=== PATIENT | female | born 1990 | race Caucasian/White ===

== ENCOUNTER 2021-09-14 01:21 | Inpatient (IN) | payer BC ==
[2021-09-14] MEDS ORDERED: Ondansetron 4 MG/2 ML SDV IVPUSH PRN (01:49)
[2021-09-14] MEDS ORDERED: Tranexamic Acid 1,000 MG in Sodium Chloride 0.9% 100 ML IV PRN (01:49)
[2021-09-14] MEDS ORDERED: Sodium Chloride 0.9% 10 ML Syringe FLUSH PRN (01:49)
[2021-09-14] MEDS ORDERED: Sodium Chloride 0.9% 20 ML SDV IV PRN (01:49)
[2021-09-14] MEDS ORDERED: Sodium Chloride 0.9% 2.5 ML Syringe FLUSH PRN (01:49)
[2021-09-14] MEDS ORDERED: Butorphanol 1 MG/ML SDV IVPUSH PRN (01:49)
[2021-09-14] MEDS ORDERED: Methylergonovine 0.2 MG/1 ML Amp IM PRN (01:49)
[2021-09-14] MEDS ORDERED: Carboprost Tromethamine 250 MCG/1 ML Amp IM PRN (01:49)
[2021-09-14] MEDS ORDERED: Lidocaine 1% 50 ML MDV INJECT PRN (01:49)
[2021-09-14] MEDS ORDERED: Misoprostol 200 MCG Tab PO PRN (01:49)
[2021-09-14] MEDS ORDERED: Water For Irrigation,Sterile 1,000 ML Container IRR PRN (01:49)
[2021-09-14] MEDS ORDERED: Oxytocin/0.9 % Sodium Chloride 30 UNIT/500 ML BAG IV SCH ×2 (02:00→06:30)
[2021-09-14] MEDS: Lactated Ringers 1,000 ML IV SCH ×2 (02:20→03:18)
[2021-09-14] MEDS ORDERED: Phenylephrine HCl In 0.9% NaCl 1 MG/10 ML Vial ONE (03:13)
[2021-09-14] MEDS ORDERED: Ropivacaine HCl/PF 400 MG in Premix Bag 1 BAG IV ONE (03:13)
[2021-09-14] MEDS ORDERED: ePHEDrine 50 MG/ML SDV IVPUSH PRN ×2 (03:21)
[2021-09-14] MEDS ORDERED: Ropivacaine HCl/PF 400 MG in Premix Bag 1 BAG EPIDUR SCH (03:30)
[2021-09-14] MEDS ORDERED: Phenylephrine HCl In 0.9% NaCl 1 MG/10 ML Vial IVPUSH SCH (03:30)
[2021-09-14] MEDS ORDERED: Terbutaline 1 MG/ML SDV SUBCUT PRN (06:20)
[2021-09-14] MEDS ORDERED: Ibuprofen 400 MG Tab PO PRN (09:53)
[2021-09-14] MEDS ORDERED: Witch Hazel Medicated Pads 40/Jar TOP PRN (09:53)
[2021-09-14] MEDS ORDERED: Benzocaine/Menthol 20%-0.5% Spray 78 GM Cannister TOP PRN (09:53)
[2021-09-14] MEDS ORDERED: oxyCODONE 5 MG Tab PO PRN (09:53)
[2021-09-14] MEDS ORDERED: Bisacodyl 10 MG Supp RECTAL PRN (09:53)
[2021-09-14] MEDS ORDERED: Acetaminophen 500 MG Tab PO PRN ×2 (09:53)
[2021-09-14] MEDS ORDERED: Lanolin 100% Cream 7 GM Tube TOP PRN (09:53)
[2021-09-14] MEDS: Ibuprofen 800 MG Tab PO PRN ×2 (12:14→23:25)
[2021-09-14] MEDS: Docusate Sodium 100 MG Cap PO PRN (20:16)
[2021-09-15] MEDS: Ibuprofen 800 MG Tab PO PRN (08:58)
[2021-09-15] MEDS: Docusate Sodium 100 MG Cap PO PRN (09:04)
== END 2021-09-15 12:00 | disposition home or self-care (01) | DRG 560 ==
LOC: MW.OBCHECK 01:21 → MW.OB 01:22 → MW.OBCHECK 01:49 → OBSVTOIN 09:19 → MW.OB 13:11
PROVIDERS: ADMIT Obstetrics & Gynecology; ATTEND Obstetrics & Gynecology
PROC: 10E0XZZ Delivery of Products of Conception, External Approach (ICD-10-PCS; principal; 2021-09-14)
PROC: 0HQ9XZZ Repair Perineum Skin, External Approach (ICD-10-PCS; 2021-09-14)
PROC: 10D17Z9 Manual Extraction of Products of Conception, Retained, Via Natural or Artificial Opening (ICD-10-PCS; 2021-09-14)
PROC: 3E0R3BZ Introduction of Anesthetic Agent into Spinal Canal, Percutaneous Approach (ICD-10-PCS; 2021-09-14)
PROC: 00HU33Z Insertion of Infusion Device into Spinal Canal, Percutaneous Approach (ICD-10-PCS; 2021-09-14)
DX: O70.0 First degree perineal laceration during delivery (principal); O73.0 Retained placenta without hemorrhage; Z37.0 Single live birth; Z20.822 Contact with and (suspected) exposure to COVID-19
CPT/HCPCS: 01967; 36415; 51702; 59025; 59409; 82803; 85014; 85018; 85027; 86592; 86593; 86780; 86850; 86900; 86901; A9270-GY; J2590; J2795; J7120; U0002

== ENCOUNTER 2023-11-11 15:21 | Emergency (ER) | payer BC ==
[2023-11-11] MEDS: Sodium Chloride 0.9% 1,000 ML IV ONE (16:27)
[2023-11-11 16:34] LABS: BASOPHILS ABSOLUTE AUTO 0.01 K/uL (0.00-0.20); BASOPHILS PERCENT AUTO 0.1 % (0.0-1.0); EOSINOPHILS ABSOLUTE AUTO 0.03 K/uL (0.00-0.45); EOSINOPHILS PERCENT AUTO 0.4 % (0.0-6.0); HEMATOCRIT 38.4 % (37.0-47.0); IMMATURE GRAN ABSOLUTE AUTO 0.02 K/uL (0.00-0.05); IMMATURE GRAN PERCENT AUTO 0.3 % (0.0-0.4); LYMPHOCYTES ABSOLUTE AUTO 1.54 K/uL (1.00-4.80); LYMPHOCYTES PERCENT AUTO 20.4 % (24.0-44.0); MEAN CORPUSCULAR HEMOGLOBIN 30.2 pg (28.0-32.0); MEAN CORPUSCULAR HGB CONC 33.9 g/dL (32.0-36.0); MEAN CORPUSCULAR VOLUME 89.1 fL (83.0-99.0); MEAN PLATELET VOLUME 9.8 fL (9.4-12.3); MONOCYTES ABSOLUTE AUTO 0.55 K/uL (0.00-0.80); MONOCYTES PERCENT AUTO 7.3 % (0.0-8.0); NEUTROPHILS ABSOLUTE AUTO 5.41 K/uL (1.80-7.70); NEUTROPHILS PERCENT AUTO 71.5 % (41.0-71.0); PLATELET COUNT,PLT 293 K/uL (150-400); RED BLOOD CELL COUNT 4.31 M/uL (4.10-5.30); WHITE BLOOD CELL COUNT,WBC 7.56 K/uL (3.9-11.3)
[2023-11-11 17:12] LABS: A/G RATIO 1.1 (0.9-1.6); ALBUMIN 3.9 g/dL (3.4-5.0); BILIRUBIN TOTAL 1.1 mg/dL (0.2-1.0); CALCIUM 8.8 mg/dL (8.5-10.1); CARBON DIOXIDE,CO2 23.1 mmol/L (21.0-32.0); CREATININE 0.9 mg/dL (0.6-1.0); EST CRCL DRUG DOSING (CG) 84.79 mL/min; POTASSIUM,K 3.7 mmol/L (3.5-5.1); PROTEIN TOTAL,TP 7.3 g/dL (6.4-8.2)
[2023-11-11] MEDS: Iopamidol 755 MG/ML 500 ML Multipack Bottle IVPUSH STA (18:54)
[2023-11-11] MEDS: Ketorolac 30 MG/ML SDV IVPUSH ONE (20:45)
[2023-11-11] MEDS: metroNIDAZOLE 250 MG Tab PO ONE (21:29)
[2023-11-11] MEDS: cefTRIAXone 1 GM in Sodium Chloride 0.9% 50 ML IV ONE (21:29)
[2023-11-11] MEDS: Doxycycline 100 MG Cap PO STA (21:29)
[2023-11-11] MEDS: Acetaminophen/HYDROcodone 325-5 MG Tab PO ONE (21:29)
== END 2023-11-11 22:21 | disposition home or self-care (01) ==
LOC: MW.ED 15:21
DX: N83.8 Other noninflammatory disorders of ovary, fallopian tube and broad ligament (principal); Z75.8 Other problems related to medical facilities and other health care
CPT/HCPCS: 36415; 74177; 76817; 80053; 84702; 85025; 86900; 86901; 96361; 96365; 96375; 99284; A9270; J0696; J1885; J3490; J7030; Q9967